=== PATIENT | male | born 1960 | race Caucasian/White ===

== ENCOUNTER → 2018-06-29 14:19 | Outpatient (CLI) | payer OTHER, SELFPAY ==
--- NOTE | 2018-06-29 14:40 | US_ITS ---
US Testicular Ordering Physician: Chacho Nance MD Patient Age: 57 years: Male HISTORY: ITS.REASON: HERNIA Palpable area superior portion right scrotum. TECHNIQUE: Ultrasound right and left hemiscrotum. Cc COMPARISON : FINDINGS Normal color Doppler flow to both testicles. No solid mass in either testicle. Homogeneous architecture for most part except for a tiny cyst along the lateral margin left testicle Head of Epididymis appears modest size bilateral. With no masses evident immediately superior to the testicles. No images more superiorly along spermatic cord nor groin were included Right testicle measures 3.6 cm length as 3.1 cm x 1.9 cm. Right testicle appears normal.. Head of epididymis appears normal There is a thin fluid collection or cyst at the lower pole of the right testicle. This flattens fluid area measures 1.5 times x0.5 x 0.7 cm. Suspect this most likely is a small hydrocele like fluid collection. Nonspecific Left testicle 3.4 cm length x 2.7 cm x 1.8 cm. There is a tiny cyst on one image only along the lateral margin of the left testicle. 3.5 x 2 mm size. Head of epididymis appears normal. There is a thin flat, fluid collection inferior to the left testicle. This measures up to 1.7 x 1.3 times only 3.6 mm thickness Suspect Reflecting a small hydrocele collection rather than cyst IMPRESSION: Testicles are normal in size. Normal flow bilaterally. No solid mass either testicle small thin, flat fluid collection seen inferior to both right & left testicle. Suspect most likely reflect hydrocele type collection Left testicle. Tiny 3.5 x 2 mm cyst at margin seen only on one image
== END ==
PROVIDERS: PCP Nurse Practitioner; Visit Provider Surgery
DX: K46.9 Unspecified abdominal hernia without obstruction or gangrene (principal)
CPT/HCPCS: 76870

== ENCOUNTER → 2020-02-18 10:38 | Outpatient (POV) | payer OTHER, SELFPAY | PROVIDERS: Visit Provider Dermatology | DX: Z00.00 Encounter for general adult medical examination without abnormal findings (principal) ==

== ENCOUNTER → 2020-03-24 08:05 | Outpatient (POV) | payer OTHER, SELFPAY | PROVIDERS: Visit Provider Dermatology | DX: Z00.00 Encounter for general adult medical examination without abnormal findings (principal) ==

== ENCOUNTER → 2020-07-07 08:30 | Outpatient (POV) | payer OTHER, SELFPAY | PROVIDERS: Visit Provider Dermatology | DX: Z00.00 Encounter for general adult medical examination without abnormal findings (principal) ==

== ENCOUNTER → 2020-11-19 09:02 | Outpatient (CLI) | payer OTHER, SELFPAY ==
--- NOTE | 2020-11-19 09:10 | US_ITS ---
PROCEDURE: US ABDOMEN LIMITED CLINICAL INDICATION: ABD PAIN COMPARISON: No exams were available for comparison FINDINGS: PANCREAS: Unremarkable. No obvious mass or abnormal fluid collection. No ductal dilatation LIVER: There is a small hepatic cyst which is septated in the central aspect of the liver measuring 2.7 cm. The liver is otherwise unremarkable. There is appropriate direction of blood flow within a non dilated portal vein RIGHT KIDNEY: There is a small right renal cyst in the central aspect of the right kidney at 1.3 x 0.7 cm. GALLBLADDER: Comet tail artifact present at the fundus of the gallbladder suggesting an area cholesterolosis. No gallstones, gallbladder wall thickening, pericholecystic fluid or biliary dilatation. IMPRESSION: Small hepatic and right renal cyst. No gallstones. Area of cholesterolosis in the fundus of the gallbladder Dictated by: Lester Oliveira MD 11/19/2020 13:19 Lester Oliveira MD in [facility] 11/19/2020 13:19
== END ==
PROVIDERS: PCP Family Medicine; Visit Provider Nurse Practitioner
DX: R10.11 Right upper quadrant pain (principal)
CPT/HCPCS: 76705

== ENCOUNTER → 2020-12-16 06:46 | Outpatient (CLI) | payer OTHER, SELFPAY ==
--- NOTE | 2020-12-16 06:48 | NM_ITS ---
PROCEDURE: NM HEPATOBILIARY WO PHARM CLINICAL INDICATION: Flank pain Right upper quadrant pain COMPARISON: US US ABDOMEN LIMITED from 11/19/2020 TECHNIQUE: DOSE: 5.26 mCi technetium Choletec. Fatty meal with Ensure FINDINGS: Homogeneous activity is present within the hepatic parenchyma. Activity is present in the gallbladder by 5 minutes. Activity is present in the small bowel by 5 minutes. The gallbladder ejection fraction is calculated to be 76 percent. No pain reported with fatty meal IMPRESSION: Unremarkable hepatobiliary scan with normal gallbladder ejection Dictated by: Lester Oliveira MD 12/16/2020 18:20 Lester Oliveira MD in [facility] 12/16/2020 18:20
--- NOTE | 2020-12-16 07:06 | HMH.ITSHM ---
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 []OMEPRAZOLE MONTELUKAST FLUTICASONE CETIRIZINE CEFUROXIME
== END ==
PROVIDERS: PCP Nurse Practitioner; Visit Provider Surgery
DX: R10.11 Right upper quadrant pain (principal)
CPT/HCPCS: 78226; A9537

== ENCOUNTER → 2020-12-18 07:07 | Outpatient (CLI) | payer OTHER, SELFPAY ==
[2020-12-18 07:28] LABS: Blood Urea Nitrogen 13 mg/dl (9-20); Estimated Glomerular Filt Rate 57 ml/min (>60); GFR (African American) 69 ML/MIN (>60)
--- NOTE | 2020-12-18 08:55 | CT_ITS ---
PROCEDURE: CT ABDOMEN PELVIS W CON CLINICAL INDICATION: rt flank pain Right flank pain, right upper quadrant pain COMPARISON: No exams were available for comparison TECHNIQUE: IV Contrast: 75ML Isovue 370 Oral Contrast 450ml Redicat Axial images obtained with sagittal and coronal reformats. All CT scans at the facility use one or more dose reduction, viz: automated exposure control, ma/kV adjustment per patient size (including targeted exams where dose is matched to indication, i.e. head), or iterative reconstruction technique. FINDINGS: LOWER THORAX: 10 x 4 mm Mary fissural nodule along the major fissure on the right nonspecific incompletely imaged. ABDOMEN & PELVIS: Cyst involves the left hepatic lobe 2.4 x 2 cm. 7 mm hypodensity left hepatic lobe superiorly in the subcapsular region too small to categorize but may represent a cyst as well. The gallbladder, spleen, adrenal glands, and pancreas has an unremarkable appearance. There are small lymph nodes in the retroperitoneum in the left periaortic area at 1.7 x 1.7 cm with prominent fatty hilum. There is an 8 mm nonobstructing stone in the mid aspect of the right kidney. A 4 mm nonobstructing stone is also present in the mid aspect of the right kidney posteriorly. There are small bilateral parapelvic renal cysts. No hydronephrosis. No ureteral calculi. No intestinal obstruction or free air. There is a small umbilical hernia containing fat. No evidence of appendicitis. There is mild thickening of the descending colon. Colonic diverticulosis is present. No evidence of diverticulitis. The prostate is prominent at 4.9 by 3.9 cm with coarse calcifications. Small nodes are present in the inguinal regions. No acute bony findings. IMPRESSION: 1. Right nephrolithiasis with 2 stones present the largest at 8 mm. No ureteral calculi. No hydronephrosis. 2. Colonic diverticulosis. No evidence of diverticulitis. There is mild thickening of the descending colon which may be due to nondistention or mild colitis. 3. 10 mm Mary fissural nodule in the right lower lobe incompletely imaged. Consider chest CT for further evaluation. 4. Other nonacute findings as detailed above. Dictated by: Lester Oliveira MD 12/21/2020 08:04 Lester Oliveira MD in [facility] 12/21/2020 08:04
== END ==
PROVIDERS: PCP Nurse Practitioner; Visit Provider Surgery
DX: R10.9 Unspecified abdominal pain (principal)
CPT/HCPCS: 36415; 74177; 82565; 84520; Q9967

== ENCOUNTER → 2020-12-28 07:08 | Outpatient (CLI) | payer OTHER, SELFPAY ==
[2020-12-28 08:04] LABS: Blood Urea Nitrogen 13 mg/dl (9-20); Estimated Glomerular Filt Rate 57 ml/min (>60); GFR (African American) 69 ML/MIN (>60)
== END ==
PROVIDERS: Visit Provider Surgery
DX: Z01.812 Encounter for preprocedural laboratory examination (principal)
CPT/HCPCS: 36415; 82565; 84520

== ENCOUNTER → 2020-12-29 12:59 | Outpatient (CLI) | payer OTHER, SELFPAY ==
--- NOTE | 2020-12-29 12:59 | CT_ITS ---
PROCEDURE: CT CHEST W CON CLINCAL INDICATION: lung nodule Right lower lobe nodule seen on recent abdomen CT COMPARISON: CT CT ABDOMEN PELVIS W CON from 12/18/2020 TECHNIQUE: IV Contrast: 75ml Isovue 370 Axial images obtained with sagittal and coronal reformats. All CT scans at the facility use one or more dose reduction, viz: automated exposure control, ma/kV adjustment per patient size (including targeted exams where dose is matched to indication, i.e. head), or iterative reconstruction technique. FINDINGS: HEART AND MEDIASTINAL STRUCTURES: There is some faint density noted in the anterior mediastinum which may be related to residual thymic tissue. No mediastinal or hilar mass or adenopathy. No evidence of aortic aneurysm or dissection. No central pulmonary embolus apparent. LUNGS AND PLEURAL SPACES: Small Mary fissural nodule once again noted along the major fissure on the right not significantly changed. This measures 9 by 4 mm. Similar smaller area fissural thickening noted along the left major fissure. These are probably due to small fissural nodes having a benign appearance. No intraparenchymal suspicious nodules are evident. No effusions or infiltrates. BONY STRUCTURES: There is a small sclerotic lesion with central lucency involving the left 8th rib laterally having a benign appearance. No acute bony findings. UPPER ABDOMEN: No change in the hepatic cyst in the left lobe of the liver. The previously noted 8 mm stone in the upper pole of the right kidney is not identified. The most inferior image suggest a stone in the right renal pelvis however, this is inconclusive. ADDITIONAL FINDINGS: No other significant abnormalities. IMPRESSION: 1. Small fissural nodules which may be due to small lymph nodes. No suspicious nodules evident. 2. Previously noted 8 mm stone in the upper pole of the right kidney is not identified and may have moved to the right renal pelvis. Dictated by: Lester Oliveira MD 12/30/2020 08:27 Lester Oliveira MD in [facility] 12/30/2020 08:27
== END ==
PROVIDERS: PCP Nurse Practitioner; Visit Provider Surgery
DX: R91.1 Solitary pulmonary nodule (principal)
CPT/HCPCS: 71260; Q9967

== ENCOUNTER 2020-12-31 07:03 | Emergency (ER) | payer OTHER, SELFPAY ==
[2020-12-31 07:21] VITALS: BP 132/84; PULSE 81; RESP 18; TEMP 36.6; O2SAT 98; BMI 30.9
[2020-12-31 07:40] VITALS: BP 121/78; PULSE 91; O2SAT 100
[2020-12-31 07:45] VITALS: BP 121/78; PULSE 86; RESP 16; O2SAT 98
[2020-12-31 07:46] LABS: Microscopic, Urine URINE MICROSCOPIC (MICROSCOPIC)
--- NOTE | 2020-12-31 07:48 | XR_ITS ---
PROCEDURE INFORMATION: Exam: XR Abdomen Exam date and time: 12/31/2020 7:48 AM Age: 60 years old Clinical indication: Abdominal pain; Localized; Right; Additional info: R/O kidney stone TECHNIQUE: Imaging protocol: XR of the abdomen. Views: Frontal supine view of the abdomen. 1 View. COMPARISON: CT ABDOMEN PELVIS W CON 12/18/2020 9:19 AM FINDINGS: Lungs: Lung bases are clear. Gastrointestinal tract: Nonobstructive bowel gas pattern. Organs: A triangular 7 mm calcification is seen in the region of the proximal right ureter. Bones/joints: No acute fractures. IMPRESSION: A 7 mm calcification projects in the region of the proximal right ureter.
[2020-12-31 07:50] LABS: Basophils # 0.1 K/mm3 (0-0.2); Basophils % 0.5 % (0.1-2.0); Eosinophils % 0.5 % (0.1-12.0); Hematocrit 50.1 % (42.0-52.0); Hemoglobin 16.1 g/dL (14.1-18.0); Lymphocytes # 1.3 K/mm3 (0.7-4.5); Lymphocytes % 14.7 % (10-50); Mean Corpuscular HGB Conc 32.1 g/dL (31.8-35.4); Mean Corpuscular Hemoglobin 30.5 pg (27.0-31.2); Mean Corpuscular Volume 95.2 fl (80-94); Mean Platelet Volume 9.8 fl (7.4-10.4); Monocytes # 0.4 K/mm3 (0.1-1.0); Neutrophils % 80.3 % (37.0-80.0); Platelet Count 131 K/mm3 (142-424); Red Blood Count 5.26 M/mm3 (4.60-6.20); Red Cell Distribution Width 13.4 % (11.5-17.5); White Blood Count 8.7 K/mm3 (4.8-10.8)
[2020-12-31 07:53] LABS: Chloride 104 mmol/L (98-107); Potassium 4.1 mmoL/L (3.5-5.1); Sodium 139 mmol/L (136-145)
[2020-12-31 07:54] LABS: Appearance,Urine CLEAR (Clear); Bilirubin,Urine Negative (Negative); Blood, Urine 3+ (Negative); Color,Urine YELLOW (Yellow); Glucose,Urine (UA) Negative (Negative); Ketones,Urine Negative (Negative); Leukocyte Esterase,Urine Negative (Negative); Nitrate,Urine Negative (Negative); Protein,Urine Negative (Negative); Urobilinogen,Urine 0.2 EU/dl (0.2)
[2020-12-31 07:56] LABS: Alanine Aminotransferase 20 U/L (12-78); Albumin Level 4.3 g/dl (3.5-5.0); Albumin/Globulin Ratio 1.4 (1.1-1.8); Alkaline Phosphatase 89 U/L (38-126); Anion Gap 9.1 mEq/L (5-15); Aspartate Amino Transferase 28 U/L (17-59); Bilirubin,Total 0.6 mg/dl (0.2-1.3); Blood Urea Nitrogen 12 mg/dl (9-20); Carbon Dioxide 30 mmol/L (22.0-30.0); Creatinine Clearance Estimated 87 mL/min (50-200); Estimated Glomerular Filt Rate 62 ml/min (>60); GFR (African American) 75 ML/MIN (>60); Globulin 3.1 g/dL (1.3-3.2); Total Protein,Serum 7.4 g/dl (6.3-8.2)
[2020-12-31 07:57] LABS: Calcium 8.9 mg/dl (8.4-10.2); Glucose 137 mg/dl (74-100)
[2020-12-31 08:05] LABS: RBC,Urine 50-100 #/hpf (0-3); Squamous Epithelial Cell,Urine Occasional #/hpf (0-5)
[2020-12-31 08:15] VITALS: BP 119/78; PULSE 84; O2SAT 100
[2020-12-31 08:30] VITALS: BP 119/78; PULSE 82; RESP 18; O2SAT 94
--- NOTE | 2020-12-31 09:04 | HMH.EDUROGM ---
ED Disposition Clinical Impression: Renal colic on right side Disposition: Home, Self-Care Condition on Discharge: Good Instructions: Kidney Stones -- Adult Additional Instructions: call urology for f/u and pcp Prescriptions: Tamsulosin HCl [Flomax 0.4mg capsule] 0.4 mg PO HS #10 cap Transmission Status: Pending to [facility] Referrals: Hayde Vogel APRN [Primary Care Provider] - - Critical Care Critical Care Time: No Attestation: On 12/31/20, the high probability of a clinically significant, sudden or life threatening deterioration of the following system(s) required my full and direct attention, intervention and personal management. The time I documented below is in addition to time spent performing reported procedures but includes the following listed in this critical care notation. Medical Decision Making - Medical Records Medical records reviewed: Yes: I reviewed the patient's medical records. - Bruno Inquiry Pt receiving controlled substance: No Vital Signs: 12/31/20 07:21 12/31/20 07:40 12/31/20 07:45 Temperature 97.8 F Temperature Source Oral Pulse Rate 91 H 86 Pulse Rate [Right] 81 Respiratory Rate 18 16 Blood Pressure 121/78 121/78 Blood Pressure [Right Arm] 132/84 Blood Pressure Mean Blood Pressure Mean [Right Arm] 100 Blood Pressure Source [Right Arm] Automatic Cuff Blood Pressure Position Sitting Blood Pressure Position [Right Arm] Sitting 02 Sat by Pulse Oximetry 98 100 98 Oxygen Delivery Method Room Air Room Air 12/31/20 08:15 12/31/20 08:30 Temperature Temperature Source Pulse Rate 84 82 Pulse Rate [Right] Respiratory Rate 18 Blood Pressure 119/78 119/78 Blood Pressure [Right Arm] Blood Pressure Mean 91 Blood Pressure Mean [Right Arm] Blood Pressure Source [Right Arm] Blood Pressure Position Blood Pressure Position [Right Arm] 02 Sat by Pulse Oximetry 100 94 L Oxygen Delivery Method - Lab Data Lab results reviewed: Yes: I reviewed the patient's lab results. Lab Results 12/31/20 07:10: Urine Color Yellow, Urine Appearance Clear, Urine pH 7.0, Ur Specific Garber 1.020, Urine Protein Negative, Urine Glucose (UA) Negative, Urine Ketones Negative, Urine Blood 3+, Urine Nitrate Negative, Urine Bilirubin Negative, Urine Urobilinogen 0.2, Ur Leukocyte Esterase Negative, Urine RBC 50-100, Urine WBC None, Ur Squamous Epith Cells Occasional, Urine Bacteria None 12/31/20 07:15: WBC 8.7, RBC 5.26, Hgb 16.1, Hct 50.1, MCV 95.2 H, MCH 30.5, MCHC 32.1, RDW 13.4, Plt Count 131 L, MPV 9.8, Neut % (Auto) 80.3 H, Lymph % (Auto) 14.7, [place] % (Auto) 4.0, Eos % (Auto) 0.5, Baso % (Auto) 0.5, Neut # (Auto) 7.0, Lymph # (Auto) 1.3, [place] # (Auto) 0.4, Eos # (Auto) 0.0, Baso # (Auto) 0.1 12/31/20 07:15: Sodium 139, Potassium 4.1, Chloride 104, Carbon Dioxide 30, Anion Gap 9.1, BUN 12, Creatinine 1.20, Estimated Creat Clear 87, Estimated GFR 62, Est GFR ( Amer) 75, Glucose 137 H, Calcium 8.9, Total Bilirubin 0.6, AST 28, ALT 20, Alkaline Phosphatase 89, Total Protein 7.4, Albumin 4.3, Globulin 3.1, Albumin/Globulin Ratio 1.4 Result diagrams: 12/31/20 07:15 12/31/20 07:15 Orders (Tests/Meds): ED MEDICATIONS Generic Name Dose Route Start Last Admin Trade Name Freq PRN Reason Stop Dose Admin Tamsulosin HCl 0.4 mg 12/31/20 21:00 12/31/20 09:16 Tamsulosin 0.4mg Capsule PO 01/30/21 20:59 0.4 mg HS CARLOS Administration Discontinued Medications Generic Name Dose Route Start Last Admin Trade Name Freq PRN Reason Stop Dose Admin Hydromorphone HCl 1 mg 12/31/20 07:41 12/31/20 07:35 Hydromorphone 2mg/Ml Syringe IV 12/31/20 07:42 1 mg ONCE ONE Administration Sodium Chloride 1,000 mls @ 999 mls/hr 12/31/20 07:45 12/31/20 07:22 Sod Chlor 0.9% 1000ml Bag IV 12/31/20 08:45 999 mls/hr .Q1H1M CARLOS Administration Ketorolac Tromethamine 30 mg 12/31/20 07:35 12/31/20 07:37 Ketorolac 30mg/Ml Vial IV
[2020-12-31 09:47] VITALS: BP 119/78; PULSE 82; RESP 18; TEMP 36.6; O2SAT 95
== END 2020-12-31 09:40 | disposition home or self-care (01) ==
PROVIDERS: Emergency Provider Emergency Medicine; PCP Nurse Practitioner; Referring Provider Surgery
DX: N23 Unspecified renal colic (principal); R10.817 Generalized abdominal tenderness; K21.9 Gastro-esophageal reflux disease without esophagitis
CPT/HCPCS: 74018; 80053; 81001; 85025; 96375; 99283; J2405

== ENCOUNTER 2020-12-31 13:53 | Emergency (ER) | payer OTHER, SELFPAY ==
[2020-12-31 13:54] VITALS: BP 141/89; PULSE 78; RESP 16; TEMP 36.9; O2SAT 98; BMI 31.5; BMI 32.5
--- NOTE | 2020-12-31 14:10 | HMH.EDGENADL ---
ED Disposition Clinical Impression: Renal colic on right side Disposition: Home, Self-Care Condition on Discharge: Good Prescriptions: Ondansetron [Zofran 4mg ODT] 4 mg PO TIDP PRN #12 tab PRN Reason: Nausea Transmission Status: Pending to [facility] Referrals: Hayde Vogel APRN [Primary Care Provider] - - Critical Care Critical Care Time: No Attestation: On 12/31/20, the high probability of a clinically significant, sudden or life threatening deterioration of the following system(s) required my full and direct attention, intervention and personal management. The time I documented below is in addition to time spent performing reported procedures but includes the following listed in this critical care notation. Medical Decision Making - Medical Records Medical records reviewed: Yes: I reviewed the patient's medical records. - Bruno Inquiry Pt receiving controlled substance: Yes Bruno was queried for this patient: Yes Risks and benefits of using a controlled substance: were discussed with pt by me Vital Signs: 12/31/20 13:54 12/31/20 14:30 Temperature 98.5 F Temperature Source Oral Pulse Rate 81 Pulse Rate [Brachial] 78 Respiratory Rate 16 16 Blood Pressure 118/76 Blood Pressure [Right Arm] 141/89 H Blood Pressure Mean 90 Blood Pressure Mean [Right Arm] 106 Blood Pressure Position [Right Arm] Sitting 02 Sat by Pulse Oximetry 98 95 Oxygen Delivery Method Room Air Orders (Tests/Meds): ED MEDICATIONS Generic Name Dose Route Start Last Admin Trade Name Freq PRN Reason Stop Dose Admin Oxycodone HCl 5 mg 12/31/20 14:20 12/31/20 14:41 Oxycodone 5mg Immediate Release Tablet PO 01/30/21 14:19 5 mg Q4HP PRN Administration Severe Pain Discontinued Medications Generic Name Dose Route Start Last Admin Trade Name Freq PRN Reason Stop Dose Admin Ondansetron HCl 4 mg 12/31/20 14:09 12/31/20 14:11 Ondansetron 4mg Odt SL 12/31/20 14:10 4 mg ONCE ONE Administration Medical Decision Narrative: Patient is a 60-year-old male who presents the ED today after having a kidney stone diagnosed recently. Patient is well-appearing on initial evaluation in no acute distress and vital signs are stable. Patient states that he is here because he is unable to take his medications secondary to nausea, given this we will treat with oral Zofran and attempt to reapplication of his oral oxycodone, if we are able to achieve adequate pain control with this, patient will be able to be discharged. Reassessment patient was stable and well-appearing, has been able to tolerate oral intake with Zofran and oxycodone administration. I have sent Zofran to the patient's pharmacy, patient briefed on return precautions return to the ED with any new or worsening symptom specifically we discussed signs of infection of his kidney stone, fevers, severe pain, difficulty or inability to urinate and he has verbalized understanding with this plan. General Adult HPI - General Stated complaint: rt side/abd pain Time Seen by Provider: 12/31/20 14:00 - History of Present Illness HPI narrative: Patient is a 60-year-old male with a recently diagnosed 8 mm kidney stone, presents the ED today as his second visit today with concern for worsening pain. Patient states that he was discharged with Percocet, attempted to take this medicine several hours after discharge from the emergency department and vomited up and has had vomiting since that time. Patient states that he otherwise feels well, has not tried to eat or drink anything since discharge in the hospital. - Related Data Home Medications Medication Instructions Recorded Confirmed fluticasone propionate 50 1 spray INTRANASAL DAILY 06/25/18 12/24/20 mcg/actuation nasal spray,suspension cetirizine 10 mg tablet 10 mg PO tab 12/07/20 12/24/20 montelukast 10 mg tablet 10 mg PO tab 12/07/20 12/24/20 omeprazole 40 mg capsule,delay
[2020-12-31 14:30] VITALS: BP 118/76; PULSE 81; RESP 16; O2SAT 95
[2020-12-31 15:34] VITALS: BP 118/74; PULSE 80; RESP 16; TEMP 37; O2SAT 98
== END 2020-12-31 15:35 | disposition home or self-care (01) ==
PROVIDERS: Emergency Provider Student in an Organized Health Care Education/Training Program; PCP Nurse Practitioner
DX: N23 Unspecified renal colic (principal)
CPT/HCPCS: 99281

== ENCOUNTER → 2021-01-04 13:02 | Outpatient (CLI) | payer OTHER, SELFPAY ==
--- NOTE | 2021-01-04 13:06 | XR_ITS ---
PROCEDURE INFORMATION: Exam: XR Abdomen Exam date and time: 01/04/2021 1:06 PM Age: 60 years old Clinical indication: Pain; Other: Kidney stones; Additional info: Kidney stone TECHNIQUE: Imaging protocol: XR of the abdomen. Views: Frontal supine view of the abdomen. 1 View. COMPARISON: CR XR KUB 12/31/2020 7:52 AM FINDINGS: Gastrointestinal tract: Scattered oral contrast in the colon. Organs: 7.4 mm stone on the right adjacent to the L3-L4 disc space. This could reflect mid ureteral stone. No additional definitive stones are seen. Bones/joints: Unremarkable. IMPRESSION: 7.4 mm stone on the right adjacent to the L3-L4 disc space could be in the mid right ureter.
== END ==
PROVIDERS: PCP Nurse Practitioner; Visit Provider Urology
DX: N20.0 Calculus of kidney (principal)
CPT/HCPCS: 74018

== ENCOUNTER → 2021-01-13 17:43 | Outpatient (CLI) | payer OTHER, SELFPAY ==
[2021-01-13 17:47] LABS: Adenovirus F 40/41, stool Not Detected (NotDetected); Astrovirus Not Detected (NotDetected); Campylobacter Not Detected (NotDetected); Cryptosporidium Not Detected (NotDetected); Cyclospora Cayetanesis Not Detected (NotDetected); Entamoeba histolytica Not Detected (NotDetected); Enteroaggregative E coli Not Detected (NotDetected); Enteropathogenic E coli Not Detected (NotDetected); Enterotoxigenic E coli Not Detected (NotDetected); Giardia lamblia Not Detected (NotDetected); Norovirus Not Detected (NotDetected); Plesimonas Shigalloides, PCR Not Detected (NotDetected); Rotavirus A Not Detected (NotDetected); Salmonella, PCR Not Detected (NotDetected); Sapovirus Not Detected (NotDetected); Shiga-like toxin E coli Not Detected (NotDetected); Shigella Enterovasive E coli Not Detected (NotDetected); Vibrio Cholerae Not Detected (NotDetected); Vibrio, PCR Not Detected (NotDetected); Yersinia Entercolitica, PCR Not Detected (NotDetected)
[2021-01-13 21:42] LABS: Clostridium Difficile A/B, PCR Detected (NotDetected)
== END ==
PROVIDERS: Visit Provider Nurse Practitioner
DX: R19.7 Diarrhea, unspecified (principal); A04.72 Enterocolitis due to Clostridium difficile, not specified as recurrent
CPT/HCPCS: 87507

== ENCOUNTER → 2022-04-02 16:50 | Outpatient (CLI) | payer OTHER, SELFPAY ==
--- NOTE | 2022-04-02 16:59 | XR_ITS ---
PROCEDURE INFORMATION: Exam: XR Chest Exam date and time: 04/02/2022 4:52 PM Age: 61 years old Clinical indication: Cough; Additional info: Bronchitis TECHNIQUE: Imaging protocol: Radiologic exam of the chest. Views: 2 views. COMPARISON: CT CHEST W CON 12/29/2020 1:43 PM FINDINGS: Lungs: No acute pulmonary findings. No pulmonary consolidation. Lung volumes within normal limits. Pulmonary vessels do not appear congested. Pleural spaces: Unremarkable. No significant pleural effusion. No pneumothorax. Heart/Mediastinum: The cardiac silhouette is normal. Bones/joints: There is no evidence of acute fracture. IMPRESSION: No acute findings. No pulmonary consolidation.
== END ==
PROVIDERS: PCP Family Medicine; Visit Provider Family Medicine
DX: J40 Bronchitis, not specified as acute or chronic (principal)
CPT/HCPCS: 71046

== ENCOUNTER → 2022-07-05 23:30 | Outpatient (CLI) | payer OTHER, SELFPAY ==
[2022-07-05 20:00] LABS: Alanine Aminotransferase 14 U/L (12-78); Albumin Level 3.8 g/dl (3.5-5.0); Albumin/Globulin Ratio 1.6 (1.1-1.8); Alkaline Phosphatase 79 U/L (38-126); Anion Gap 8.9 mEq/L (5-15); Aspartate Amino Transferase 22 U/L (17-59); Bilirubin,Total 0.5 mg/dl (0.2-1.3); Blood Urea Nitrogen 13 mg/dl (9-20); Calcium 8.1 mg/dl (8.4-10.2); Carbon Dioxide 25 mmol/L (22.0-30.0); Chloride 105 mmol/L (98-107); Estimated Glomerular Filt Rate 69 ml/min (>60); GFR (African American) 83 ML/MIN (>60); Globulin 2.4 g/dL (1.3-3.2); Glucose 99 mg/dl (74-100); Potassium 3.9 mmoL/L (3.5-5.1); Sodium 135 mmol/L (136-145); Total Protein,Serum 6.2 g/dl (6.3-8.2)
[2022-07-05 20:33] LABS: Prostate Specific Ag Screen 2.2 ng/ml (0.0-4.0)
== END ==
PROVIDERS: PCP Family Medicine; Visit Provider Family Medicine
DX: E78.5 Hyperlipidemia, unspecified (principal); N40.0 Benign prostatic hyperplasia without lower urinary tract symptoms; Z12.5 Encounter for screening for malignant neoplasm of prostate
CPT/HCPCS: 80053; G0103

== ENCOUNTER → 2022-07-27 23:20 | Outpatient (CLI) | payer OTHER, SELFPAY ==
[2022-07-27 18:15] LABS: Chol/HDL Ratio 3.1 (1-3.5); Cholesterol 139 mg/dl (140-200); HDL Cholesterol 45 mg/dl (40-60); Triglycerides 90 mg/dl (30-150); VLDL Cholesterol 18 mg/dL (0-40)
[2022-07-27 18:26] LABS: Direct LDL Cholesterol 81.25 mg/dL (100-129)
== END ==
PROVIDERS: PCP Family Medicine; Visit Provider Family Medicine
DX: E78.5 Hyperlipidemia, unspecified (principal)
CPT/HCPCS: 80061

== ENCOUNTER → 2023-01-26 23:38 | Outpatient (CLI) | payer OTHER, SELFPAY ==
[2023-01-26 18:19] LABS: Coronavirus 19, PCR Not Detected (NotDetected); Influenza A, PCR Not Detected (NotDetected); Influenza B, PCR Not Detected (NotDetected)
[2023-01-26 18:38] LABS: Chloride 103 mmol/L (98-107); Potassium 3.9 mmoL/L (3.5-5.1); Sodium 138 mmol/L (136-145)
[2023-01-26 18:40] LABS: Alanine Aminotransferase 21 U/L (12-78); Blood Urea Nitrogen 15 mg/dl (9-20); Estimated Glomerular Filt Rate 62 ml/min (>60); GFR (African American) 75 ML/MIN (>60)
[2023-01-26 18:41] LABS: Albumin Level 4.2 g/dl (3.5-5.0); Albumin/Globulin Ratio 1.6 (1.1-1.8); Alkaline Phosphatase 91 U/L (38-126); Anion Gap 13.9 mEq/L (5-15); Aspartate Amino Transferase 27 U/L (17-59); Bilirubin,Total 0.6 mg/dl (0.2-1.3); Calcium 8.3 mg/dl (8.4-10.2); Carbon Dioxide 25 mmol/L (22.0-30.0); Globulin 2.7 g/dL (1.3-3.2); Glucose 103 mg/dl (74-100); Total Protein,Serum 6.9 g/dl (6.3-8.2)
[2023-01-26 19:12] LABS: Basophils # 0.1 K/mm3 (0-0.2); Basophils % 0.3 % (0.1-2.0); Eosinophils % 0.2 % (0.1-12.0); Hematocrit 48.4 % (42.0-52.0); Hemoglobin 16.5 g/dL (14.1-18.0); Lymphocytes # 1.2 K/mm3 (0.7-4.5); Lymphocytes % 7.4 % (10-50); Mean Corpuscular Hemoglobin 31.9 pg (27.0-31.2); Mean Corpuscular Volume 93.9 fl (80-94); Mean Platelet Volume 10.6 fl (7.4-10.4); Monocytes # 0.9 K/mm3 (0.1-1.0); Monocytes % 5.8 % (1.7-9.3); Neutrophils # 13.5 K/mm3 (1.8-7.8); Neutrophils % 86.3 % (37.0-80.0); Platelet Count 135 K/mm3 (142-424); Red Blood Count 5.16 M/mm3 (4.60-6.20); Red Cell Distribution Width 13.2 % (11.5-17.5); White Blood Count 15.6 K/mm3 (4.8-10.8)
[2023-01-26 19:14] LABS: MANUAL DIFFERENTIAL MANUAL DIFFERENTIAL (MANUAL DIFF)
[2023-01-26 22:20] LABS: Lymphocytes % 16 % (10-50); Monocytes % 4 % (2-9); Neutrophils % 80 % (42-76); Platelet Estimate Slight Decrease; RBC Morphology Normal; Total Cells Counted 100
== END ==
PROVIDERS: PCP Nurse Practitioner; Visit Provider Nurse Practitioner
DX: J06.9 Acute upper respiratory infection, unspecified (principal); R06.09 Other forms of dyspnea; R05.9 Cough, unspecified; Z87.442 Personal history of urinary calculi; B95.2 Enterococcus as the cause of diseases classified elsewhere
CPT/HCPCS: 80053; 85007; 85025; 87086; 87636

== ENCOUNTER → 2023-02-01 07:10 | Outpatient (CLI) | payer OTHER, SELFPAY ==
--- NOTE | 2023-02-01 07:10 | CT_ITS ---
FINAL REPORT TECHNIQUE: Thin section axial images were obtained through the abdomen after intravenous contrast. Reconstruction images were obtained from the axial data. Exam was performed using dose reduction techniques. CLINICAL HISTORY: RLQ pain, hx kidney stone COMPARISON: 12/18/2020 FINDINGS: There are new small groundglass nodules in the left lower lobe favored to be infectious or inflammatory. There are stable hypodense lesions in the left lobe of the liver which are likely cysts. The gallbladder is present. The spleen, adrenal glands, and pancreas are unremarkable. There is no hydronephrosis or solid renal mass. There is mild nonspecific perinephric stranding which is stable. Abdominal GI tract is without acute abnormality. Retroperitoneal lymph nodes are favored to be reactive and are stable. There is no ascites. The prostate is enlarged. The urinary bladder is unremarkable. The appendix is normal. There is diverticulosis with no evidence of diverticulitis. There is no pelvic lymphadenopathy or ascites. No acute osseous abnormalities identified. IMPRESSION: New groundglass nodules in the left lower lobe consistent with pneumonia. No acute abnormality in the abdomen or pelvis. Stable chronic findings. Reviewed, Interpreted and Dictated by Kassi Lee MD Transcribed by Twyla Daniel Authenticated and . [facility]
--- NOTE | 2023-02-01 07:10 | XR_ITS ---
FINAL REPORT CLINICAL HISTORY: cough, COPD exacerbation, pneumonia FINDINGS: PA and lateral views of the chest are obtained. There is no prior exam for comparison. The cardiac and mediastinal silhouettes are within normal limits. The lungs are clear. There is no pleural effusion, pneumothorax, or acute osseous abnormality. IMPRESSION: No radiographic evidence of acute cardiac or pulmonary disease. Reviewed, Interpreted and Dictated by Kassi Lee MD Transcribed by Twyla Daniel Authenticated and [facility]
== END ==
PROVIDERS: PCP Nurse Practitioner; Visit Provider Nurse Practitioner
DX: R10.31 Right lower quadrant pain (principal); Z87.442 Personal history of urinary calculi; J18.9 Pneumonia, unspecified organism
CPT/HCPCS: 71046; 74177; Q9967

== ENCOUNTER 2023-04-11 19:35 | Outpatient (CLI) | payer OTHER, SELFPAY ==
[2023-04-11 19:01] LABS: Basophils # 0.1 K/mm3 (0-0.2); Basophils % 0.5 % (0.1-2.0); Eosinophils # 0.2 K/mm3 (0.0-0.4); Eosinophils % 1.4 % (0.1-12.0); Hematocrit 52.8 % (42.0-52.0); Lymphocytes # 2.3 K/mm3 (0.7-4.5); Lymphocytes % 21.2 % (10-50); Mean Corpuscular HGB Conc 32.1 g/dL (31.8-35.4); Mean Corpuscular Hemoglobin 30.3 pg (27.0-31.2); Mean Corpuscular Volume 94.4 fl (80-94); Mean Platelet Volume 10.9 fl (7.4-10.4); Monocytes # 0.8 K/mm3 (0.1-1.0); Monocytes % 7.1 % (1.7-9.3); Neutrophils # 7.6 K/mm3 (1.8-7.8); Neutrophils % 69.7 % (37.0-80.0); Platelet Count 149 K/mm3 (142-424); Red Blood Count 5.59 M/mm3 (4.60-6.20); Red Cell Distribution Width 13.6 % (11.5-17.5); White Blood Count 10.9 K/mm3 (4.8-10.8)
[2023-04-11 19:14] LABS: Alanine Aminotransferase 17 U/L (12-78); Albumin Level 4.1 g/dl (3.5-5.0); Albumin/Globulin Ratio 1.6 (1.1-1.8); Alkaline Phosphatase 76 U/L (38-126); Amylase 82 U/L (30-110); Anion Gap 10.9 mEq/L (5-15); Aspartate Amino Transferase 20 U/L (17-59); Bilirubin,Total 0.4 mg/dl (0.2-1.3); Blood Urea Nitrogen 17 mg/dl (9-20); Calcium 8.3 mg/dl (8.4-10.2); Carbon Dioxide 27 mmol/L (22.0-30.0); Chloride 106 mmol/L (98-107); Estimated Glomerular Filt Rate 52 ml/min (>60); GFR (African American) 63 ML/MIN (>60); Globulin 2.6 g/dL (1.3-3.2); Glucose 91 mg/dl (74-100); Lipase 123 U/L (23-300); Potassium 3.9 mmoL/L (3.5-5.1); Sodium 140 mmol/L (136-145); Total Protein,Serum 6.7 g/dl (6.3-8.2)
== END 2023-04-11 23:59 ==
LOC: LAB.DROPOF 19:35
PROVIDERS: PCP Nurse Practitioner; Visit Provider Nurse Practitioner
DX: R10.11 Right upper quadrant pain (principal); N39.0 Urinary tract infection, site not specified; B95.2 Enterococcus as the cause of diseases classified elsewhere
CPT/HCPCS: 80053; 82150; 83690; 85025; 87086

== ENCOUNTER 2023-04-22 12:35 | Outpatient (CLI) | payer OTHER, SELFPAY ==
--- NOTE | 2023-04-22 12:39 | XR_ITS ---
PROCEDURE INFORMATION: Exam: XR Lumbosacral Spine Exam date and time: 04/22/2023 12:39 PM Age: 62 years old Clinical indication: Low back pain TECHNIQUE: Imaging protocol: Radiologic exam of the lumbosacral spine. Views: 2 or 3 views. COMPARISON: CT ABDOMEN PELVIS W CON 02/01/2023 7:23 AM FINDINGS: Bones/joints: Lumbar spondylosis with multilevel disc degeneration. Findings stable since 02/01/2023. Soft tissues: Unremarkable. IMPRESSION: Lumbar spondylosis with multilevel disc degeneration. Findings stable since 02/01/2023.
--- NOTE | 2023-04-22 12:39 | XR_ITS ---
PROCEDURE INFORMATION: Exam: XR Thoracic Spine Exam date and time: 04/22/2023 12:39 PM Age: 62 years old Clinical indication: Pain in thoracic spine; Without myelpathy or radiculopathy; Additional info: Thoracic back pain TECHNIQUE: Imaging protocol: Radiologic exam of the thoracic spine. Views: 2 views. COMPARISON: X-ray chest two view 02/01/2023 FINDINGS: Bones/joints: Mild scoliosis of the lower thoracic spine convexity to the left. Mild changes of thoracic spondylosis. Soft tissues: Unremarkable. IMPRESSION: No evidence of acute osseous injury.
== END 2023-04-22 23:59 ==
LOC: RAD 12:36
PROVIDERS: PCP Nurse Practitioner; Visit Provider Nurse Practitioner
DX: M54.6 Pain in thoracic spine (principal); M54.50 Low back pain, unspecified
CPT/HCPCS: 72070; 72100

== ENCOUNTER 2024-05-20 13:11 | Outpatient (CLI) | payer OTHER, SELFPAY ==
--- NOTE | 2024-05-20 13:24 | XR_ITS ---
FINAL REPORT CLINICAL HISTORY: right distal foot pain at the 1st metatarsal COMPARISON: None FINDINGS: Three views of the right foot show no evidence of acute displaced fracture or dislocation of the visualized bony architecture. There are mild diffuse degenerative changes predominantly in the digits. Minimal calcaneal spurring is present. No periosteal reaction is identified. IMPRESSION: Mild diffuse degenerative change predominately in the digits, without acute bony abnormality. Reviewed, Interpreted and Dictated by Oskar Beard MD Transcribed by Millie Cruz Authenticated and [facility]
--- NOTE | 2024-05-20 13:24 | XR_ITS ---
FINAL REPORT CLINICAL HISTORY: cough, asthma exacerbation COMPARISON: 02/01/2023 FINDINGS: No acute pulmonary density is evident. There is no evidence of effusion or other pleural disease. The mediastinum has a normal appearance. The cardiac silhouette is unremarkable. IMPRESSION: No acute abnormality identified. Reviewed, Interpreted and Dictated by Oskar Beard MD Transcribed by Millie Cruz Authenticated and [facility]
[2024-05-20 13:33] LABS: Basophils % 0.4 % (0.1-2.0); Eosinophils # 0.2 K/mm3 (0.0-0.4); Eosinophils % 1.6 % (0.1-12.0); Hematocrit 47.3 % (42.0-52.0); Hemoglobin 15.4 g/dL (14.1-18.0); Lymphocytes % 19.7 % (10-50); Mean Corpuscular HGB Conc 32.6 g/dL (31.8-35.4); Mean Corpuscular Hemoglobin 29.6 pg (27.0-31.2); Mean Platelet Volume 11.1 fl (7.4-10.4); Monocytes # 0.7 K/mm3 (0.1-1.0); Monocytes % 6.7 % (1.7-9.3); Neutrophils # 7.4 K/mm3 (1.8-7.8); Neutrophils % 71.3 % (37.0-80.0); Platelet Count 166 K/mm3 (142-424); Red Cell Distribution Width 12.9 % (11.5-17.5); White Blood Count 10.3 K/mm3 (4.8-10.8)
[2024-05-20 14:09] LABS: Alanine Aminotransferase 26 U/L (12-78); Albumin Level 3.8 g/dl (3.5-5.0); Albumin/Globulin Ratio 1.7 (1.1-1.8); Alkaline Phosphatase 80 U/L (38-126); Aspartate Amino Transferase 25 U/L (17-59); Bilirubin,Total 0.3 mg/dl (0.2-1.3); Blood Urea Nitrogen 15 mg/dl (9-20); Calcium 8.9 mg/dl (8.4-10.2); Carbon Dioxide 28 mmol/L (22.0-30.0); Chloride 108 mmol/L (98-107); Estimated Glomerular Filt Rate 68 ml/min (>60); GFR (African American) 82 ML/MIN (>60); Globulin 2.3 g/dL (1.3-3.2); Glucose 105 mg/dl (74-100); Sodium 139 mmol/L (136-145); Total Protein,Serum 6.1 g/dl (6.3-8.2)
[2024-05-20 15:17] LABS: Uric Acid 7.2 mg/dl (3.5-8.5)
== END 2024-05-20 23:59 | disposition home or self-care (01) ==
LOC: LAB 13:13
PROVIDERS: PCP Nurse Practitioner; Visit Provider Nurse Practitioner
DX: J45.901 Unspecified asthma with (acute) exacerbation (principal); M79.671 Pain in right foot; R05.9 Cough, unspecified
CPT/HCPCS: 36415; 71046; 73630; 80053; 84550; 85025